=== PATIENT | female | born 1990 ===

== ENCOUNTER 2018-01-28 06:57 | Inpatient (IN) ==
[2018-01-28] MEDS ORDERED: ONDANSETRON 4 MG/2 ML VIAL IV PRN (07:20)
[2018-01-28] MEDS ORDERED: BUTORPHANOL 2 MG/ML VIAL IV PRN (07:20)
[2018-01-28] MEDS ORDERED: MEPERIDINE 50 MG/1 ML VIAL IV PRN (07:20)
[2018-01-28] MEDS ORDERED: LACTATED RINGERS 500 ML IV PRN (07:20)
[2018-01-28] MEDS ORDERED: AMPICILLIN INJ 2,000 MG in SODIUM CHLORIDE 0.9% 100 ML IV ONE (07:27)
[2018-01-28] MEDS ORDERED: FAMOTIDINE 20 MG/2 ML VIAL IV ONE (07:29)
[2018-01-28] MEDS ORDERED: ePHEDrine 50 MG/ML AMP IV PRN (07:29)
[2018-01-28] MEDS ORDERED: CITRIC ACID/SODIUM CITRATE 30 ML UDCUP PO ONE (07:29)
[2018-01-28] MEDS ORDERED: diphenhydrAMINE 50 MG/1 ML VIAL IV PRN ×2 (07:29)
[2018-01-28] MEDS ORDERED: ONDANSETRON 4 MG/2 ML VIAL IV ONE (07:29)
[2018-01-28] MEDS ORDERED: LACTATED RINGERS 1,000 ML IV ONE (07:29)
[2018-01-28] MEDS ORDERED: PROMETHAZINE 25 MG/1 ML VIAL IM ONE (07:29)
[2018-01-28] MEDS ORDERED: hydrOXYzine HCL 25 MG/1 ML VIAL IM PRN (07:29)
[2018-01-28] MEDS ORDERED: OXYTOCIN/LR 20 UNIT/1,000 ML BAG IV SCH ×2 (07:30→19:50)
[2018-01-28] MEDS ORDERED: fentaNYL 2 MCG/ROPIV 0.2% EPID 150 ML EPIDURAL SCH (07:30)
[2018-01-28 07:55] LABS: Basophils % 0.2 % (0.0-0.8); Eosinophils # 0.1 10*3/uL (0.0-0.87); Eosinophils % 0.8 % (0.00-10.9); Hematocrit 30.5 VOL% (35.7-47.0); Hemoglobin 9.8 GM/DL (12.0-16.0); Immature Granulocytes % 0.5 %; Immature Granulocytes Absolute 0.04 #; Lymphocytes # 2.9 10*3/uL (1.4-4.0); Lymphocytes % 33.6 % (21.3-54.2); Mean Corpuscular HGB Conc 32.1 GM/DL (32-36); Mean Corpuscular Hemoglobin 27 PG (27-34); Mean Corpuscular Volume 83.1 FL (87-102); Mean Platelet Volume 9.8 FL (9.6-12.0); Monocytes # 0.6 10*3/uL (0.11-0.8); Monocytes % 7.3 % (1.7-12.7); Neutrophils # 4.9 10*3/uL (1.4-7.4); Neutrophils % 57.6 % (38.7-73.9); Platelet Count 270 T/CUMM (130-400); Red Blood Count 3.67 MC/CUMM (3.8-5.5); Red Cell Distribution Width 16.3 % (9.3-17.3); White Blood Count 8.6 T/CUMM (4-12)
[2018-01-28 08:30] LABS: Albumin 2.2 G/DL (3.4-5.0); Bilirubin,Total 0.4 MG/DL (0.2-1.0); Calcium 7.8 MG/DL (8.5-10.1); Osmolality,Calculated 279.3 MOS/KG (273-304); Potassium 3.8 MMOL/L (3.5-5.1); Total Protein 6.7 G/DL (6.4-8.3)
[2018-01-28 08:49] LABS: Hepatitis B Surface Ag Quant < 0.10 Index; Hepatitis B Surface Ag Result Negative (Negative); Rubella Antibody IgG 9.3 IU/ML
[2018-01-28] MEDS: LACTATED RINGERS 1,000 ML IV SCH ×2 (11:08→17:45)
[2018-01-28 11:14] LABS: Rapid Plasma Reagin Confirm REACTIVE (Nonreactive)
[2018-01-28] MEDS ORDERED: AMPICILLIN INJ 1,000 MG in SODIUM CHLORIDE 0.9% 100 ML IV SCH (11:30)
[2018-01-28 15:08] LABS: Apearance,Urine CLEAR (Clear); Bilirubin,Urine Negative (Negative); Blood, Urine Negative (Negative); Glucose,Urine (UA) Negative (Negative); Ketones,Urine Negative (Negative); Nitrite,Urine Negative (Negative); Protein,Urine Negative; RBC,Urine 1 /HPF (0-4); Squamous Epithelial Cell,Urine Occasional /HPF (0-10); Urine Color Yellow (Yellow); Urine Specific Gravity 1.011 (1.001-1.035); Urine Urobilinogen < 2.0 EU/DL (0.2-1.0); WBC,Urine 1 /HPF (0-6)
[2018-01-28] MEDS ORDERED: LIDOCAINE 1% 50 ML VIAL ONE (23:46)
[2018-01-28] MEDS ORDERED: miSOPROStol 200 MCG TABLET ONE (23:46)
[2018-01-29] MEDS ORDERED: METHYLERGONOVINE 0.2 MG/1 ML AMP IM ONE (00:38)
[2018-01-29] MEDS ORDERED: METHYLERGONOVINE 0.2 MG/1 ML AMP ONE (00:39)
[2018-01-29 00:57] LABS: Cord Venous Blood HCO3 19.3 MMOL/L; Cord Venous Blood PCO2 36.8 MMHG; Cord Venous Blood PO2 29.1
[2018-01-29] MEDS ORDERED: ONDANSETRON 4 MG/2 ML VIAL IV PRN (01:33)
[2018-01-29] MEDS ORDERED: MEASLES/MUMPS/RUBELLA VACCINE 0.5 ML VIAL SUBCUT ONE (01:33)
[2018-01-29] MEDS ORDERED: LANOLIN 50% CREAM 0.3 OZ TUBE TOP PRN (01:33)
[2018-01-29] MEDS ORDERED: HYDROCORTISONE 2.5% RECTAL CREAM 30 GM TUBE TOP PRN (01:33)
[2018-01-29] MEDS ORDERED: DIPH/TET/ACEL PERT BOOSTER VACCINE 0.5 ML VIAL IM ONE (01:33)
[2018-01-29] MEDS ORDERED: RHO(D) IMMUNE GLOBULIN 300 MCG SYRINGE IM ONE (01:33)
[2018-01-29] MEDS ORDERED: oxyCODONE/ACETAMINOPHEN 5-325 MG TABLET PO PRN ×2 (01:33)
[2018-01-29] MEDS ORDERED: OXYTOCIN/LR 20 UNIT/1,000 ML BAG IV ONE (01:33)
[2018-01-29] MEDS ORDERED: BISACODYL 10 MG SUPP RECTAL PRN (01:33)
[2018-01-29] MEDS ORDERED: BENZOCAINE 20%/MENTHOL 0.5% SPRAY 56 GM CAN TOP PRN (01:33)
[2018-01-29] MEDS ORDERED: WITCH HAZEL PADS 100/JAR TOP PRN (01:33)
[2018-01-29] MEDS ORDERED: ACETAMINOPHEN 325 MG TABLET PO PRN (01:33)
[2018-01-29 05:08] LABS: Basophils # 0.1 10*3/uL (0.0-0.2); Basophils % 0.2 % (0.0-0.8); Hematocrit 26.9 VOL% (35.7-47.0); Hemoglobin 8.6 GM/DL (12.0-16.0); Immature Granulocytes % 0.6 %; Immature Granulocytes Absolute 0.14 #; Lymphocytes # 2.4 10*3/uL (1.4-4.0); Lymphocytes % 10.6 % (21.3-54.2); Mean Corpuscular Hemoglobin 27 PG (27-34); Mean Corpuscular Volume 82.8 FL (87-102); Mean Platelet Volume 10.3 FL (9.6-12.0); Monocytes # 1.2 10*3/uL (0.11-0.8); Monocytes % 5.3 % (1.7-12.7); Neutrophils # 18.5 10*3/uL (1.4-7.4); Neutrophils % 83.3 % (38.7-73.9); Platelet Count 238 T/CUMM (130-400); Red Blood Count 3.25 MC/CUMM (3.8-5.5); Red Cell Distribution Width 16.4 % (9.3-17.3); White Blood Count 22.3 T/CUMM (4-12)
[2018-01-29 06:49] LABS: Anisocytosis 2+; Band Neutrophils 3 % (0-10); Lymphocytes 9 % (20-55); Macrocytosis 1+; Microcytosis 1+; Platelet Estimate Normal; Polychromasia Few; Segmented Neutrophils 84 % (50-85); Total Cells Counted 100
[2018-01-29] MEDS: DOCUSATE SODIUM 100 MG CAPSULE PO SCH ×2 (09:04→20:47)
[2018-01-29] MEDS: IBUPROFEN 800 MG TABLET PO PRN (11:48)
[2018-01-30] MEDS: IBUPROFEN 800 MG TABLET PO PRN ×2 (09:31→20:04)
[2018-01-30] MEDS: DOCUSATE SODIUM 100 MG CAPSULE PO SCH ×2 (09:31→20:04)
[2018-01-31 07:19] VITALS: BP 128/74
[2018-01-31] MEDS: DOCUSATE SODIUM 100 MG CAPSULE PO SCH (09:00)
== END 2018-01-31 12:45 | disposition home or self-care (01) | DRG 775 ==
LOC: N.LDOUT 07:05 → N.LD 07:08 → N.OB 01-29 02:11
PROVIDERS: ADMIT Obstetrics & Gynecology; ATTEND Obstetrics & Gynecology

== ENCOUNTER 2019-08-31 21:06 | Inpatient (IN) ==
[2019-08-31] MEDS ORDERED: ACETAMINOPHEN 325 MG TABLET PO PRN (22:24)
[2019-08-31] MEDS: HYDROmorphone 2 MG/1 ML VIAL IV PRN (22:30)
[2019-08-31] MEDS: ONDANSETRON 4 MG/2 ML VIAL IV PRN (22:34)
[2019-09-01] MEDS: PIPERACILLIN/TAZOBACTAM 3,375 MG in SODIUM CHLORIDE 0.9% 100 ML IV SCH ×2 (00:01→10:02)
[2019-09-01] MEDS: HYDROmorphone 2 MG/1 ML VIAL IV PRN ×3 (02:51→23:09)
[2019-09-01 04:52] LABS: Basophils % 0.2 % (0.0-0.8); Eosinophils % 0.2 % (0.00-10.9); Hemoglobin 12.5 GM/DL (12.0-16.0); Immature Granulocytes % 0.3 %; Immature Granulocytes Absolute 0.03 #; Lymphocytes # 1.4 10*3/uL (1.4-4.0); Lymphocytes % 13.5 % (21.3-54.2); Mean Corpuscular HGB Conc 32.1 GM/DL (32-36); Mean Platelet Volume 9.5 FL (9.6-12.0); Monocytes % 7.5 % (1.7-12.7); Neutrophils % 78.3 % (38.7-73.9); Platelet Count 347 T/CUMM (130-400); Red Cell Distribution Width 14.2 % (9.3-17.3); White Blood Count 10.7 T/CUMM (4-12)
[2019-09-01 05:34] LABS: Albumin 3.2 G/DL (3.4-5.0); Bilirubin,Total 5.2 MG/DL (0.2-1.0); Calcium 8.8 MG/DL (8.5-10.1); Osmolality,Calculated 270.8 MOS/KG (273-304); Total Protein 8.2 G/DL (6.4-8.3)
[2019-09-01] MEDS: SODIUM CHLORIDE 0.9% 1,000 ML IV SCH ×4 (06:25→22:21)
[2019-09-01] MEDS ORDERED: cefOXitin 2,000 MG in SYRINGE 1 EACH IV ONE (07:54)
[2019-09-01] MEDS ORDERED: INDOCYANINE GREEN 25 MG VIAL IV ONE (07:54)
[2019-09-01] MEDS ORDERED: INDOMETHACIN SUPP 50 MG SUPP RECTAL ONE ×2 (09:05→11:04)
[2019-09-01] MEDS ORDERED: LACTATED RINGERS 1,000 ML IV SCH (09:30)
[2019-09-01] MEDS: PANTOPRAZOLE 40 MG VIAL IV SCH (10:01)
[2019-09-01] MEDS ORDERED: TISSUE ADHESIVE 1 EACH APPLICATOR TOP ONE (11:26)
[2019-09-01] MEDS ORDERED: LIDOCAINE 1%/EPI INJ 20 ML VIAL ONE (11:26)
[2019-09-01] MEDS ORDERED: BUPIVACAINE MPF 0.25% 30 ML VIAL ONE (11:26)
[2019-09-01] MEDS ORDERED: SUGAMMADEX 200 MG/2 ML VIAL IV ONE (13:50)
[2019-09-01] MEDS ORDERED: GLUCAGON 1 MG VIAL ONE (14:10)
[2019-09-01] MEDS ORDERED: LIDOCAINE 2% 5 ML VIAL ONE (14:19)
[2019-09-01] MEDS ORDERED: ONDANSETRON 4 MG/2 ML VIAL ONE (14:20)
[2019-09-01] MEDS ORDERED: SEVOFLURANE 1 UNIT/15 MINUTE INH ONE (14:20)
[2019-09-01] MEDS ORDERED: PHENYLEPHRINE 1 MG/10 ML SYRINGE IV ONE (14:20)
[2019-09-01] MEDS ORDERED: ACETAMINOPHEN 1,000 MG/100 ML VIAL IV ONE (14:20)
[2019-09-01] MEDS ORDERED: ETOMIDATE 40 MG/20 ML VIAL IV ONE (14:20)
[2019-09-01] MEDS ORDERED: fentaNYL 100 MCG/2 ML VIAL ONE (14:20)
[2019-09-01] MEDS ORDERED: MIDAZOLAM 2 MG/2 ML VIAL ONE (14:20)
[2019-09-01] MEDS ORDERED: SUCCINYLCHOLINE 200 MG/10 ML VIAL ONE (14:20)
[2019-09-01] MEDS ORDERED: DEXAMETHASONE 4 MG/1 ML VIAL ONE (14:20)
[2019-09-01] MEDS ORDERED: LACTATED RINGERS 1,000 ML IV ONE (14:21)
[2019-09-01] MEDS ORDERED: ROCURONIUM 100 MG/10 ML VIAL IV ONE (14:21)
[2019-09-01] MEDS ORDERED: BISACODYL 5 MG TABLET PO PRN (14:40)
[2019-09-01] MEDS ORDERED: ALBUTEROL/IPRATROPIUM 3 ML NEB RESP TX PRN (14:40)
[2019-09-01] MEDS ORDERED: HYDROmorphone 2 MG/1 ML VIAL IV PRN (14:40)
[2019-09-01] MEDS: cefOXitin 2,000 MG in SYRINGE 1 EACH IV SCH (18:11)
[2019-09-01] MEDS: KETOROLAC 15 MG/1 ML VIAL IV PRN (20:59)
[2019-09-01] MEDS: ONDANSETRON 4 MG/2 ML VIAL IV PRN (23:11)
[2019-09-02] MEDS: cefOXitin 2,000 MG in SYRINGE 1 EACH IV SCH ×2 (00:58→06:39)
[2019-09-02] MEDS: SODIUM CHLORIDE 0.9% 1,000 ML IV SCH ×4 (02:21→18:39)
[2019-09-02] MEDS: HYDROmorphone 2 MG/1 ML VIAL IV PRN ×3 (02:39→22:58)
[2019-09-02 06:09] LABS: Basophils % 0.2 % (0.0-0.8); Eosinophils % 0.1 % (0.00-10.9); Immature Granulocytes % 0.5 %; Immature Granulocytes Absolute 0.05 #; Lymphocytes # 2.1 10*3/uL (1.4-4.0); Lymphocytes % 20.5 % (21.3-54.2); Mean Corpuscular HGB Conc 32.3 GM/DL (32-36); Mean Corpuscular Volume 83.1 FL (87-102); Mean Platelet Volume 9.6 FL (9.6-12.0); Neutrophils % 68.7 % (38.7-73.9); Platelet Count 302 T/CUMM (130-400); Red Blood Count 3.73 MC/CUMM (3.8-5.5); Red Cell Distribution Width 14.5 % (9.3-17.3); White Blood Count 10.3 T/CUMM (4-12)
[2019-09-02 06:35] LABS: Albumin 2.5 G/DL (3.4-5.0); Bilirubin,Total 5.3 MG/DL (0.2-1.0); Calcium 7.7 MG/DL (8.5-10.1); Total Protein 6.4 G/DL (6.4-8.3)
[2019-09-02] MEDS: PANTOPRAZOLE 40 MG VIAL IV SCH (08:57)
[2019-09-02] MEDS: NORGESTIMATE ETHINYL ESTRADIOL PO SCH (09:00)
[2019-09-02] MEDS: CIPROFLOXACIN INJ 400 MG in PREMIX 1 EACH IV SCH ×3 (09:48→21:48)
[2019-09-03] MEDS: SODIUM CHLORIDE 0.9% 1,000 ML IV SCH ×4 (02:00→21:20)
[2019-09-03 05:10] LABS: Basophils % 0.2 % (0.0-0.8); Eosinophils % 0.4 % (0.00-10.9); Hematocrit 25.3 VOL% (35.7-47.0); Hemoglobin 8.1 GM/DL (12.0-16.0); Immature Granulocytes % 0.3 %; Immature Granulocytes Absolute 0.03 #; Lymphocytes # 2.5 10*3/uL (1.4-4.0); Lymphocytes % 25.8 % (21.3-54.2); Mean Corpuscular Volume 84.3 FL (87-102); Mean Platelet Volume 9.8 FL (9.6-12.0); Neutrophils % 63.3 % (38.7-73.9); Platelet Count 243 T/CUMM (130-400); Red Cell Distribution Width 14.8 % (9.3-17.3); White Blood Count 9.6 T/CUMM (4-12)
[2019-09-03 05:49] LABS: Albumin 2.2 G/DL (3.4-5.0); Bilirubin,Total 1.8 MG/DL (0.2-1.0); Calcium 7.7 MG/DL (8.5-10.1); Osmolality,Calculated 272.5 MOS/KG (273-304); Total Protein 5.9 G/DL (6.4-8.3)
[2019-09-03] MEDS ORDERED: POTASSIUM CHLORIDE 20 MEQ TABLET PO PRN (07:45)
[2019-09-03] MEDS: KETOROLAC 15 MG/1 ML VIAL IV PRN (09:52)
[2019-09-03] MEDS: PANTOPRAZOLE 40 MG VIAL IV SCH (09:52)
[2019-09-03] MEDS: NORGESTIMATE ETHINYL ESTRADIOL PO SCH (09:52)
[2019-09-03] MEDS: CIPROFLOXACIN INJ 400 MG in PREMIX 1 EACH IV SCH ×2 (09:53→21:24)
[2019-09-03] MEDS: HYDROmorphone 2 MG/1 ML VIAL IV PRN ×2 (13:07→21:22)
[2019-09-04 03:47] LABS: Basophils % 0.3 % (0.0-0.8); Eosinophils # 0.1 10*3/uL (0.0-0.87); Eosinophils % 0.6 % (0.00-10.9); Hematocrit 25.3 VOL% (35.7-47.0); Hemoglobin 8.2 GM/DL (12.0-16.0); Immature Granulocytes % 0.5 %; Immature Granulocytes Absolute 0.05 #; Lymphocytes # 2.4 10*3/uL (1.4-4.0); Lymphocytes % 23.9 % (21.3-54.2); Mean Corpuscular HGB Conc 32.4 GM/DL (32-36); Mean Corpuscular Volume 84.1 FL (87-102); Mean Platelet Volume 9.6 FL (9.6-12.0); Monocytes % 9.1 % (1.7-12.7); Neutrophils % 65.6 % (38.7-73.9); Platelet Count 274 T/CUMM (130-400); Red Blood Count 3.01 MC/CUMM (3.8-5.5); Red Cell Distribution Width 14.9 % (9.3-17.3); White Blood Count 10.2 T/CUMM (4-12)
[2019-09-04 04:25] LABS: Albumin 2.5 G/DL (3.4-5.0); Bilirubin,Total 1.7 MG/DL (0.2-1.0); Calcium 8.1 MG/DL (8.5-10.1); Osmolality,Calculated 271.7 MOS/KG (273-304); Total Protein 6.4 G/DL (6.4-8.3)
[2019-09-04] MEDS: PANTOPRAZOLE 40 MG VIAL IV SCH (10:27)
[2019-09-04] MEDS: NORGESTIMATE ETHINYL ESTRADIOL PO SCH (10:27)
[2019-09-04] MEDS: CIPROFLOXACIN INJ 400 MG in PREMIX 1 EACH IV SCH (10:29)
[2019-09-04] MEDS: HYDROmorphone 2 MG/1 ML VIAL IV PRN ×2 (10:54→15:14)
[2019-09-04] MEDS: SODIUM CHLORIDE 0.9% 1,000 ML IV SCH (22:51)
[2019-09-05 06:44] LABS: Albumin 2.4 G/DL (3.4-5.0); Bilirubin,Total 1.7 MG/DL (0.2-1.0); Osmolality,Calculated 269.8 MOS/KG (273-304); Total Protein 6.5 G/DL (6.4-8.3)
[2019-09-05 07:25] VITALS: BP 132/78
[2019-09-05] MEDS: PANTOPRAZOLE 40 MG VIAL IV SCH (08:21)
[2019-09-05] MEDS: NORGESTIMATE ETHINYL ESTRADIOL PO SCH (10:11)
== END 2019-09-05 10:40 | disposition home or self-care (01) | DRG 417 ==
LOC: EDUNIT# → EDBD → N.ED 21:06 → N.EDINP 21:45 → N.3E 22:24
PROVIDERS: ADMIT Surgery; ATTEND Surgery
PROC: ERCPWSP (ICD-10-PCS; 2019-09-01 11:35)

== ENCOUNTER 2019-09-14 09:43 | Inpatient (IN) ==
[2019-09-14] MEDS ORDERED: ONDANSETRON 4 MG/2 ML VIAL IV PRN (11:00)
[2019-09-14] MEDS ORDERED: PROMETHAZINE 25 MG/1 ML VIAL IM PRN (11:00)
[2019-09-14] MEDS ORDERED: HYDROmorphone 2 MG/1 ML VIAL IV PRN (11:00)
[2019-09-14] MEDS: LACTATED RINGERS 1,000 ML IV SCH (11:21)
[2019-09-14] MEDS: KETOROLAC 15 MG/1 ML VIAL IV PRN (11:40)
[2019-09-14 11:42] LABS: Basophils % 0.4 % (0.0-0.8); Eosinophils % 0.3 % (0.00-10.9); Hemoglobin 8.9 GM/DL (12.0-16.0); Immature Granulocytes % 0.7 %; Immature Granulocytes Absolute 0.07 #; Lymphocytes # 2.1 10*3/uL (1.4-4.0); Lymphocytes % 21.3 % (21.3-54.2); Mean Corpuscular HGB Conc 29.7 GM/DL (32-36); Mean Corpuscular Volume 87.5 FL (87-102); Mean Platelet Volume 8.6 FL (9.6-12.0); Monocytes % 9.2 % (1.7-12.7); Neutrophils % 68.1 % (38.7-73.9); Platelet Count 776 T/CUMM (130-400); Red Blood Count 3.43 MC/CUMM (3.8-5.5); Red Cell Distribution Width 15.4 % (9.3-17.3); White Blood Count 9.8 T/CUMM (4-12)
[2019-09-14 12:07] LABS: Albumin 2.8 G/DL (3.4-5.0); Bilirubin,Direct 0.43 MG/DL (0.0-0.20); Calcium 8.9 MG/DL (8.5-10.1); Osmolality,Calculated 270.8 MOS/KG (273-304); Total Protein 8.1 G/DL (6.4-8.3)
[2019-09-14] MEDS: LEVOFLOXACIN 750 MG TABLET PO SCH (16:18)
[2019-09-15] MEDS: LACTATED RINGERS 1,000 ML IV SCH ×2 (01:19→17:09)
[2019-09-15] MEDS: KETOROLAC 15 MG/1 ML VIAL IV PRN (01:20)
[2019-09-15 05:32] LABS: Basophils % 0.2 % (0.0-0.8); Eosinophils # 0.1 10*3/uL (0.0-0.87); Eosinophils % 0.6 % (0.00-10.9); Hematocrit 24.6 VOL% (35.7-47.0); Hemoglobin 7.4 GM/DL (12.0-16.0); Immature Granulocytes % 0.6 %; Immature Granulocytes Absolute 0.05 #; Lymphocytes # 2.4 10*3/uL (1.4-4.0); Lymphocytes % 29.2 % (21.3-54.2); Mean Corpuscular HGB Conc 30.1 GM/DL (32-36); Mean Corpuscular Volume 86.3 FL (87-102); Mean Platelet Volume 8.8 FL (9.6-12.0); Monocytes % 8.6 % (1.7-12.7); Neutrophils % 60.8 % (38.7-73.9); Platelet Count 650 T/CUMM (130-400); Red Blood Count 2.85 MC/CUMM (3.8-5.5); Red Cell Distribution Width 15.2 % (9.3-17.3); White Blood Count 8.3 T/CUMM (4-12)
[2019-09-15 05:58] LABS: Albumin 2.3 G/DL (3.4-5.0); Bilirubin,Direct 0.31 MG/DL (0.0-0.20); Bilirubin,Total 1.5 MG/DL (0.2-1.0); Calcium 8.4 MG/DL (8.5-10.1); Osmolality,Calculated 272.7 MOS/KG (273-304); Total Protein 6.8 G/DL (6.4-8.3)
[2019-09-15] MEDS: PANTOPRAZOLE 40 MG VIAL IV SCH (06:09)
[2019-09-15 08:02] LABS: INR 1.1; PT Patient Result 11.7 SECS (9.6-12.2); Partial Thromboplastin Time 36.9 SECS (20.8-36.0)
[2019-09-15] MEDS ORDERED: ENOXAPARIN 40 MG/0.4 ML SYRINGE SUBCUT SCH (09:00)
[2019-09-15] MEDS: LEVOFLOXACIN 750 MG TABLET PO SCH (09:02)
[2019-09-16] MEDS: LACTATED RINGERS 1,000 ML IV SCH (04:08)
[2019-09-16 04:53] LABS: Basophils % 0.3 % (0.0-0.8); Eosinophils # 0.1 10*3/uL (0.0-0.87); Eosinophils % 1.5 % (0.00-10.9); Hematocrit 24.2 VOL% (35.7-47.0); Hemoglobin 7.2 GM/DL (12.0-16.0); Immature Granulocytes % 0.5 %; Immature Granulocytes Absolute 0.04 #; Lymphocytes # 2.5 10*3/uL (1.4-4.0); Lymphocytes % 34.3 % (21.3-54.2); Mean Corpuscular HGB Conc 29.8 GM/DL (32-36); Mean Corpuscular Volume 87.4 FL (87-102); Mean Platelet Volume 8.8 FL (9.6-12.0); Monocytes % 8.4 % (1.7-12.7); Platelet Count 637 T/CUMM (130-400); Red Blood Count 2.77 MC/CUMM (3.8-5.5); Red Cell Distribution Width 15.4 % (9.3-17.3); White Blood Count 7.3 T/CUMM (4-12)
[2019-09-16] MEDS: PANTOPRAZOLE 40 MG VIAL IV SCH (06:06)
[2019-09-16] MEDS: LEVOFLOXACIN 750 MG TABLET PO SCH (09:14)
[2019-09-16] MEDS ORDERED: SODIUM CHLORIDE 0.9% 1,000 ML IV PRN (12:18)
[2019-09-17] MEDS: PANTOPRAZOLE 40 MG VIAL IV SCH (05:59)
[2019-09-17 06:52] LABS: Basophils % 0.4 % (0.0-0.8); Eosinophils # 0.2 10*3/uL (0.0-0.87); Hematocrit 32.7 VOL% (35.7-47.0); Hemoglobin 9.9 GM/DL (12.0-16.0); Immature Granulocytes % 0.7 %; Immature Granulocytes Absolute 0.05 #; Lymphocytes # 2.4 10*3/uL (1.4-4.0); Lymphocytes % 30.8 % (21.3-54.2); Mean Corpuscular HGB Conc 30.3 GM/DL (32-36); Mean Corpuscular Volume 85.8 FL (87-102); Mean Platelet Volume 8.7 FL (9.6-12.0); Monocytes % 8.7 % (1.7-12.7); Neutrophils % 57.4 % (38.7-73.9); Platelet Count 624 T/CUMM (130-400); Red Blood Count 3.81 MC/CUMM (3.8-5.5); Red Cell Distribution Width 15.3 % (9.3-17.3); White Blood Count 7.7 T/CUMM (4-12)
[2019-09-17 07:19] LABS: Albumin 2.3 G/DL (3.4-5.0); Bilirubin,Total 1.4 MG/DL (0.2-1.0); Calcium 8.7 MG/DL (8.5-10.1); Osmolality,Calculated 274.4 MOS/KG (273-304); Total Protein 6.9 G/DL (6.4-8.3)
[2019-09-17] MEDS: LEVOFLOXACIN 750 MG TABLET PO SCH (09:15)
[2019-09-17 10:18] VITALS: BP 108/76
== END 2019-09-17 11:25 | disposition home or self-care (01) | DRG 920 ==
LOC: N.2E 10:00
PROVIDERS: ADMIT Surgery; ATTEND Surgery